=== PATIENT | female | born 1935 | race Caucasian/White ===

== ENCOUNTER 2024-04-15 03:14 | Emergency (ER) | payer MEDICARE, MEDICAID ==
[~2024-04-15] VITALS: Ht 152.4 cm; Wt 59.1 kg
[2024-04-15] MEDS ORDERED: AMLO-258 PO (04:16)
[2024-04-15] MEDS ORDERED: FURO20TA5 PO (04:16)
[2024-04-15] MEDS ORDERED: CARV3 PO (04:16)
[2024-04-15] MEDS ORDERED: PANT-31 PO (04:16)
[2024-04-15] MEDS ORDERED: APIX2.5T PO (04:16)
[2024-04-15] MEDS ORDERED: HYDR10TA31 PO (04:16)
[2024-04-15] MEDS ORDERED: MIRT-89 PO (04:16)
[2024-04-15 04:40] VITALS: PULSE 95; RESP 30; O2SAT 99
[2024-04-15] MEDS: ALBUTEROL SULFATE 2.5 MG/0.5 ML NEB SOLUTION NEB ONE (04:40)
[2024-04-15] MEDS: IPRATROPIUM BROMIDE 0.5 MG/2.5 ML NEB SOLUTION NEB ONE (04:40)
[2024-04-15] MEDS: FUROSEMIDE 20 MG/2 ML VIAL IVP ONE (04:43)
[2024-04-15 04:46] LABS: BASOPHILS % (AUTO) 0.5 % (0.0-2.0); EOSINOPHILS % (AUTO) 1.1 % (1.0-6.0); HEMATOCRIT 31.4 % (36-46); HEMOGLOBIN 10.2 g/dL (12.0-16.0); LYMPHOCYTES # (AUTO) 0.7 K/uL (1.0-4.8); LYMPHOCYTES % (AUTO) 7.2 % (22.0-44.0); MEAN CORPUSCULAR HEMOGLOBIN 27.9 pg (26.0-34.0); MEAN CORPUSCULAR HGB CONC 32.6 G/dL (31.0-37.0); MEAN CORPUSCULAR VOLUME 86 fL (80-100); MONOCYTES # (AUTO) 1.1 K/uL (0.1-1.0); MONOCYTES % (AUTO) 11.2 % (2.0-9.0); NEUTROPHILS # (AUTO) 7.7 K/uL (1.8-7.7); PLATELET COUNT (AUTO) 394 K/uL (150-450); RED BLOOD CELL COUNT(AUTO) 3.66 MIL/uL (4.00-5.20); RED CELL DISTRIBUTION WIDTH 18.9 % (11.5-14.5); WHITE BLOOD COUNT (AUTO) 9.6 K/uL (4.5-11.0)
[2024-04-15 04:52] LABS: ANION GAP 7 mmol/L (8-16); CARBON DIOXIDE 32 mmol/L (22-29); CHLORIDE 96 mmol/L (98-107); CREATININE 1.29 mg/dL (0.60-1.30); GLOMERULAR FILTR. RATE CALC 39 mL/min (>60); GLUCOSE,RANDOM 110 mg/dL (70-110); POTASSIUM 4.4 mmol/L (3.5-5.1); SODIUM SERUM 135 mmol/L (136-145); UREA NITROGEN, BLOOD 24 mg/dL (7-18)
[2024-04-15 04:53] LABS: LIPASE 16 U/L (16-77)
[2024-04-15 04:55] VITALS: PULSE 104; RESP 28; O2SAT 95
[2024-04-15 05:00] LABS: LACTIC ACID 1.2 mmol/L (0.4-2.0); TROPONIN I-HIGH SENSITIVITY 10 ng/L (<51)
[2024-04-15] MEDS: BUMETANIDE 0.25 MG/ML 4 ML VIAL IVP ONE (05:03)
[2024-04-15 05:05] LABS: B-TYPE NATRIURETIC PEPTIDE 738 pg/mL (0-100)
[2024-04-15 08:00] VITALS: TEMP 97.5
[2024-04-15 09:18] LABS: COVID AG,FIA SOURCE NASAL SWAB
[2024-04-15 09:21] LABS: APPEARANCE,URINE HAZY (CLEAR); BILIRUBIN,URINE NEGATIVE (NEGATIVE); COLOR,URINE YELLOW (YELLOW); GLUCOSE, URINE (UA) NEGATIVE (NEGATIVE); KETONES,URINE NEGATIVE (NEGATIVE); LEUKOCYTE ESTERASE ,URINE NEGATIVE (NEGATIVE); NITRATE,URINE NEGATIVE (NEGATIVE); OCCULT BLOOD,URINE NEGATIVE (NEGATIVE); PROTEIN,URINE NEGATIVE (NEGATIVE); SPECIFIC GRAVITIY, URINE 1.013 (1.003-1.030); UROBILINOGEN,URINE <=1.0 mg/dL (<=1.0)
[2024-04-15 09:32] LABS: BACTERIA,URINE None Seen /HPF (None Seen); RBC,URINE 0-2 /HPF (0-2); SQUAMOUS EPITHELIAL CELL,UR Many /LPF (None Seen); WBC,URINE 0-2 /HPF (0-5)
[2024-04-15 09:43] LABS: INFLUENZA TYPE A NEGATIVE FOR TYPE A (NEGATIVE); INFLUENZA TYPE B NEGATIVE FOR TYPE B (NEGATIVE); SARS-COV2 (COVID) ANTIGEN,FIA Negative (Negative)
[2024-04-15 09:45] VITALS: BP 129/85; PULSE 98; RESP 27; O2SAT 96
== END 2024-04-15 10:34 | disposition admitted as inpatient to this hospital (09) ==
LOC: EMS 03:16
DX: J96.91 Respiratory failure, unspecified with hypoxia (principal); J44.1 Chronic obstructive pulmonary disease with (acute) exacerbation; I50.20 Unspecified systolic (congestive) heart failure; K21.9 Gastro-esophageal reflux disease without esophagitis; F41.9 Anxiety disorder, unspecified; N17.9 Acute kidney failure, unspecified; I11.0 Hypertensive heart disease with heart failure; Z88.2 Allergy status to sulfonamides; Z88.8 Allergy status to other drugs, medicaments and biological substances; Z20.822 Contact with and (suspected) exposure to COVID-19
CPT/HCPCS: 99291; 96374; 96375; 87426; 80048; 81001; 83690; 83880; 84484; 85025; 87040; 87804; 94640; 71045; 93005; 83605; 36415; J3490; J1940; J7613